=== PATIENT | female | born 1985 | race Two or more races ===

== ENCOUNTER 2020-09-06 12:33 | Outpatient (CLI) | payer OTHER | END 2020-09-06 13:00 | disposition home or self-care (01) | LOC: NST 12:33 | PROVIDERS: ATTEND Obstetrics & Gynecology | DX: Z34.82 Encounter for supervision of other normal pregnancy, second trimester (principal) ==

== ENCOUNTER 2020-11-29 13:45 | Inpatient (IN) | payer OTHER ==
[~2020-11-29] VITALS: Ht 162.6 cm; Wt 83.0 kg
[2020-12-18] MEDS ORDERED: INTEGRA F CAPS1 EAC1 (08:10)
== END 2020-12-21 13:14 | disposition home or self-care (01) | DRG 788 ==
LOC: LDR 12-11 13:45 → O/R 12-17 15:31 → LDR 12-17 15:31 → O/R 12-18 14:41 → SURG-SUITE 12-18 16:57
PROVIDERS: ADMIT Obstetrics & Gynecology Maternal & Fetal Medicine; ATTEND Obstetrics & Gynecology Maternal & Fetal Medicine
PROC: 3E0P7VZ Introduction of Hormone into Female Reproductive, Via Natural or Artificial Opening (ICD-10-PCS; 2020-12-17)
PROC: 3E033VJ Introduction of Other Hormone into Peripheral Vein, Percutaneous Approach (ICD-10-PCS; 2020-12-17)
PROC: 4A1HXFZ Monitoring of Products of Conception, Cardiac Rhythm, External Approach (ICD-10-PCS; 2020-12-17)
PROC: 10907ZC Drainage of Amniotic Fluid, Therapeutic from Products of Conception, Via Natural or Artificial Opening (ICD-10-PCS; 2020-12-18)
PROC: 10D00Z1 Extraction of Products of Conception, Low, Open Approach (ICD-10-PCS; principal; 2020-12-18 15:15)
DX: O61.0 Failed medical induction of labor (principal); O48.0 Post-term pregnancy; Z3A.40 40 weeks gestation of pregnancy; Z37.0 Single live birth; Z20.822 Contact with and (suspected) exposure to COVID-19

== ENCOUNTER 2020-12-06 11:50 | Outpatient (CLI) | payer OTHER | END 2020-12-06 12:26 | disposition home or self-care (01) | LOC: NST 11:50 | PROVIDERS: ATTEND Obstetrics & Gynecology | DX: O36.5930 Maternal care for other known or suspected poor fetal growth, third trimester, not applicable or unspecified (principal) ==

== ENCOUNTER 2020-12-13 10:01 | Outpatient (CLI) | payer OTHER | END 2020-12-13 10:52 | disposition home or self-care (01) | LOC: NST 10:01 | PROVIDERS: ATTEND Obstetrics & Gynecology Maternal & Fetal Medicine | DX: Z34.83 Encounter for supervision of other normal pregnancy, third trimester (principal) ==